=== PATIENT | male | born 1945 | race Caucasian/White ===

== ENCOUNTER 2016-07-19 10:29 | Day surgery (SDC) | payer OTHER ==
[~2016-07-19 10:29] MED LIST: ASPIRIN ADULT L81 M1 PO; AZOPT1 % OP; IBUPROFEN600 MG PO; IRON PO; LATANOPROST0.005 % OP; MULTI COMPLETE PO; PROSCAR5 MG PO; SIMVASTATIN40 MG PO; TRAZODONE HCL50 MG PO; VITAMIN D-31000 UNIT PO
--- NOTE | 2016-07-19 13:49 | Provider's Discharge Care Plan ---
Problem, Goal, Plan Problem List 1. S/P colonoscopy Goals: Screening Instructions: Follow up as needed, Take meds as directed, high fiber diet
--- NOTE | 2016-07-19 13:49 | Provider's Discharge Care Plan ---
Problem, Goal, Plan Problem List 1. S/P colonoscopy Goals: Screening Instructions: Follow up as needed, Take meds as directed, high fiber diet
--- NOTE | 2016-07-19 14:14 | OPERATIVE REPORT ---
DATE OF SURGERY: 07/19/2016 SURGEON: Evelyn Mae III, MD COMMERCIAL ADMINISTRATOR: None. PREOPERATIVE DIAGNOSIS: 1. Screening colonoscopy POSTOPERATIVE DIAGNOSIS: 1. Sigmoid diverticulosis PROCEDURE PERFORMED: 1. Colonoscopy ANESTHESIA: TIVA. INDICATIONS: The patient is a 71-year-old male whose last colonoscopy was approximately 10 years ago. He is basically asymptomatic, scheduled for screening. SURGICAL FINDINGS: Normal-appearing cecum, ascending, transverse, and descending colon. The patient was noted to have extensive sigmoid diverticulosis. The rectal vault appeared grossly normal. SURGICAL TECHNIQUE: The patient was brought to the operating room and placed in the left lateral decubitus position, where he was administered TIVA and monitored closely by anesthesia. After proper anesthesia had taken effect, a digital rectal examination revealed no masses or stenosis. This was then followed by the passage of a fiberoptic video flexible Olympus colonoscope which, without difficulty, negotiated to the cecum. The cecum was identified by anatomical landmarks and anterior abdominal wall ballottement. On withdrawing the scope, the aforementioned findings were noted. The scope was withdrawn, retroflexed, good view of the rectal vault obtained. No other pathology identified. The scope was completely withdrawn. The patient tolerated the procedure well and was transferred to the recovery room in stable condition. There were no intraoperative or anesthetic complications.
--- NOTE | 2016-07-19 14:14 | OPERATIVE REPORT ---
DATE OF SURGERY: 07/19/2016 SURGEON: Evelyn Mae III, MD MEAT AND SEAFOOD CLERK: None. PREOPERATIVE DIAGNOSIS: 1. Screening colonoscopy POSTOPERATIVE DIAGNOSIS: 1. Sigmoid diverticulosis PROCEDURE PERFORMED: 1. Colonoscopy ANESTHESIA: TIVA. INDICATIONS: The patient is a 71-year-old male whose last colonoscopy was approximately 10 years ago. He is basically asymptomatic, scheduled for screening. SURGICAL FINDINGS: Normal-appearing cecum, ascending, transverse, and descending colon. The patient was noted to have extensive sigmoid diverticulosis. The rectal vault appeared grossly normal. SURGICAL TECHNIQUE: The patient was brought to the operating room and placed in the left lateral decubitus position, where he was administered TIVA and monitored closely by anesthesia. After proper anesthesia had taken effect, a digital rectal examination revealed no masses or stenosis. This was then followed by the passage of a fiberoptic video flexible Olympus colonoscope which, without difficulty, negotiated to the cecum. The cecum was identified by anatomical landmarks and anterior abdominal wall ballottement. On withdrawing the scope, the aforementioned findings were noted. The scope was withdrawn, retroflexed, good view of the rectal vault obtained. No other pathology identified. The scope was completely withdrawn. The patient tolerated the procedure well and was transferred to the recovery room in stable condition. There were no intraoperative or anesthetic complications.
== END 2016-07-19 15:16 | disposition home or self-care (01) ==
LOC: OR SRH 10:29 → ACUTE3 SRH 10:34
PROVIDERS: Specialist
PROC: 0DJD8ZZ Inspection of Lower Intestinal Tract, Via Natural or Artificial Opening Endoscopic (ICD-10-PCS; principal; 2016-07-19 12:00)
DX: Z12.11 Encounter for screening for malignant neoplasm of colon (principal); K57.30 Diverticulosis of large intestine without perforation or abscess without bleeding